=== PATIENT | male | born 1980 ===

== ENCOUNTER 2018-03-06 10:29 | Outpatient (CLI) | payer OTHER ==
--- NOTE | 2018-03-06 12:06 | RAD ---
4 VIEWS RIGHT KNEE: Date: 03/06/18 COMPARISON: None. HISTORY: Right knee pain. FINDINGS: Four views of the right knee show no evidence of acute fracture or dislocation. No knee effusion is s een. No degenerative changes are seen. IMPRESSION: Unremarkable exam. POS: [facility]
== END 2018-03-06 10:30 | disposition home or self-care (01) ==
LOC: RAD-FRANK 10:29
PROVIDERS: ATTEND Nurse Practitioner Family
DX: M25.561 Pain in right knee (principal)